=== PATIENT | male | born 1975 | race Caucasian/White ===

== ENCOUNTER 2020-12-07 10:08 | Inpatient (IN) | payer OTHER ==
[2020-12-07] VITALS (35 sets, daily range): BP systolic 115–194; BP diastolic 69–107
[~2020-12-07] VITALS: Ht 185.4 cm; Wt 201.5 kg
--- NOTE | ~2020-12-07 | EMS ---
[address] [address] EMS Patient Care Report Name: HENRI DIAL Room #: REG ZEKE Kapoor#: [id number] Admission: 12/07/20 Attend Phys: Discharge: Date of : [birth year] Report #: [id number] THIS REPORT FOR: //name// Report Transmitted: 12/07/2020 11:06 EMS Care Summary [place], [place]/[facility] Incident [phone] @ 12/07/2020 09:37 Incident Location [address] [place] [address] Patient HENRI DIAL Male, 46 Years 1974-07-13 Patient Address [address] [place] [id number] Patient History Hypertension (HTN),Hyperlipidemia,Depression,Schizoaffective Disorder,Type 2 Diabetes,Insomnia, Patient Allergies Codeine,Bee sting allergy, Patient Medications Amlodipine, Acetaminophen, Risperdal, Temazepam, Depakote, Citalopram, Gabapentin, Metformin, Lisinopril, Aspirin, Buspirone, Celexa, Cholecalciferol, Trazodone, Divalproex Sodium, Clonazepam, Lasix, Amitiza, Chief Complaint Altered mental status Disposition Transported [place] Dispatch Reason Sick Person Transported To [address] [address] EMS Patient Care Report Name: HENRI DIAL Room #: REG Emelia#: [id number] Admission: 12/07/20 Attend Phys: Discharge: Date of : [birth year] Report #: [id number] Arrived on scene with P45 to find our patient seated in a wheelchair. PA staff stated that they had noticed the patient was acting abnormally during shift change at 0600 earlier that morning. According to PA staff the patient's was normally a GCS15. PA staff reported that the patient had a room air SPO2 of 60%. When asked if the patient had any history of respiratory issues, conflicting reports were given stating that the patient had either no history of respiratory issues I was also told he had a recent history of "breathing problems." PA staff was unable to give an accurate estimate of when the patient's last known normal was. Upon patient contact he had an SPO2 of 98% on high flow O2, patient had audible rales without auscultation. Vital signs, glucose, and 3 lead EKG obtained. I removed the patient from O2 for a room air SPO2, at which point he rapidly dropped to the low 80% SPO2 range. Auscultation revealed course rales in the upper lobes of his lungs and absent lung sounds in his lower lobes. Due to the patient's facial features and his inability to follow commands I was unable to CPAP the patient. Patient placed back on high flow O2 and rapid transport was initiated. Patient transferred to receiving facility without further change in patient condition. Initial Vitals @09:55P: 108,SpO2: 84, @09:53P: 97,R: 20,GCS: 12,Glucose: 108,CO: 7,SpO2: 83, @09:58P: 111,R: 20,BP: 82/46,GCS: 12,SpO2: 91,Revised Trauma: 10, @10:00R: 20,BP: 132/82,GCS: 12,SpO2: 94,Revised Trauma: 11, Assessments @09:47MENTAL:Confused,Person Oriented,SKIN:Diaphoresis,Pale,HEENT:Head/Face: No Abnormalities,Eyes: No Abnormalities,Neck/Airway: No Abnormalities,LUNG SOUNDS:Left Upper: No Abnormalities,Right Upper: No Abnormalities,Left Lower: No Abnormalities,Right Lower: No Abnormalities,ABDOMEN:Left Upper: No Abnormalities,Right Upper: No Abnormalities,Left Lower: No Abnormalities,Right Lower: No Abnormalities,PELVIS//GI:No Abnormalities,EXTREMITIES:Left Arm: No Abnormalities,Right Arm: No Abnormalities,Left Leg: No Abnormalities,Right Leg: No Abnormalities,PULSE:Radial: 2+ Normal,NEURO:No Abnormalities,@09:56MENTAL:Confused,Person Oriented,SKIN:Diaphoresis,Pale,HEENT:LUNG SOUNDS:ABDOMEN:PELVIS//GI:EXTREMITIES:PULSE:NEURO: Impression Altered Mental Status Procedures @09:47ALS AssessmentResponse: UnchangedSucceeded@PTAOxygen FlowRate: 15 Device: Non Re-breather Mask (NRB) Response: ImprovedSucceeded@09:533-Lead ECGResponse: UnchangedSucceeded [address] [address] EMS Patient Care Report Name: HENRI DIAL Room #: REG ZEKE Kapoor#: [id number] Admission: 12/07/20 Attend Phys: Discharge: Date of : [birth year] Report #: [id number] Timeline CONTROL PANEL OPERATOR,Oxygen FlowRate: 15 Device: Non Re-breather Mask (NRB) Response: ImprovedSucceeded, 09:35,Call Received 09:35,Dispatch Notified 09:37,Dispatched 09:37,En Route 09:44,On Scene 09:47,At Patient 09:47,ALS Assessment,Response: UnchangedSucceeded, 09:53,3-Lead ECG,Response: UnchangedSucceeded, 09:53,BP: / M,PULSE: 97,RR: 20 R,SPO2: 83 Ox,ETCO2: ,B,PAIN: ,GCS: 12, 09:55,BP: / M,PULSE: 108,RR: R,SPO2: 84 Ox,ETCO2: ,BG: ,PAIN: ,GCS: , 09:55,Depart Scene 09:58,BP: 82/46 M,PULSE: 111,RR: 20 R,SPO2: 91 Ox,ETCO2: ,BG: ,PAIN: ,GCS: 12, 10:00,BP: 132/82 M,PULSE: ,RR: 20 R,SPO2: 94 Ox,ETCO2: ,BG: ,PAIN: ,GCS: 12, 10:01,At Destination 10:31,Call Closed Disclaimer v1.1 Copyright 2020 [employer] This EMS Care Summary contains data elements from the applicable legal record (which may be displayed differently). It is designed to provide pertinent information for the following purposes: continuity of care, clinical quality, and state data reporting. The complete legal record is available to ED staff and administrators of the receiving hospital in [employer]'s Patient Tracker. All data is provided "as is."
[~2020-12-07 10:08] MED LIST: AMITIZA8 MCG PO; ATIVAN0.5 MG; ATIVAN1 MG; CELEXA20 MG; CHILDREN'S ASPI81 M1 PO; CHLORPROMAZINE100 MG; CHLORPROMAZINE50 M2 PO; CLONAZEPAM 1 MG1 M1 PO; COLACE100 MG PO; CRESTOR40 MG PO; FEXOFENADINE HC60 MG PO; FLONASE 0.05%50 MCG NASAL; HALOPERIDOL5 MG/1 M1; HYDROCHLOROTHIA25 M1; IBUPROFEN 600600 M1 PO; KEFLEX500 MG PO; LASIX 40 MG TAB40 M2 PO; METFORMIN HCL500 MG PO; NEURONTIN 300300 M1; NEURONTIN 400M400 M2 PO; NORVASC5 MG PO; OMEGA-31000 M1; PROTONIX 20 MG20 MG; RISPERDAL50 MG/2 ML IM; SEROQUEL 50 MG50 MG; SEROQUEL300 MG; SINEMET 25-1001 EAC1; SINEMET CR 50/21 TAB; TIMOLOL GL0.5 %/5 M1; TRAMADOL 50 MG50 MG; ZESTRIL40 MG PO
--- NOTE | 2020-12-07 10:20 | NUR ---
PT TO BE INTUBATED AT THIS TIME. MEDS READY FOR DR KUO 20 ETOMIDATE AND 120 SUCCS.
[2020-12-07 10:54] LABS: HEMATOCRIT 37.6 % (42.0-52.0); HEMOGLOBIN 11.7 gm/dL (14.0-18.0); MCH 26.4 pg (26.0-34.0); MCHC 31.1 g/dL (28.0-37.0); MCV 84.8 fL (80.0-100.0); PLATELET COUNT 356 thou/uL (150-400); RBC 4.44 mil/uL (4.50-6.00); RDW 16.9 % (10.5-14.5); WBC 11.1 thou/uL (4.0-11.0)
[2020-12-07 10:59] LABS: ANION GAP 4 mmol/L (7-16); BUN 12 mg/dL (7-18); CHLORIDE 93 mmol/L (98-107); CO2 37 mmol/L (21-32); CREATININE 0.7 mg/dL (0.7-1.3); GLUCOSE 102 mg/dL (74-106); POTASSIUM 4.4 mmol/L (3.5-5.1); SODIUM 134 mmol/L (136-145)
[2020-12-07 11:05] LABS: ALBUMIN 2.8 g/dL (3.4-5.0); SGOT 12 U/L (15-37); SGPT 13 U/L (30-65); TOTAL BILIRUBIN 0.4 mg/dL (0.2-1.0); TOTAL PROTEIN 7.6 g/dL (6.4-8.2); TROPONIN-I <0.06 ng/mL (<0.06)
[2020-12-07 11:43] LABS: BE(vivo) 6.6 mmol/L (-2 to +3); HCO3 34.9 mmol/L (22.0-26.0); PCO2 69.4 mmHg (35.0-45.0); PO2 110.7 mmHg (80.0-100.0); pH 7.319 (7.360-7.450); sO2 97.5 % (92.0-98.0)
[2020-12-07 12:31] LABS: URINE BILIRUBIN NEGATIVE (Negative); URINE BLOOD NEGATIVE (Negative); URINE CLARITY CLEAR; URINE COLOR YELLOW; URINE GLUCOSE-RANDOM* NEGATIVE (Negative); URINE KETONES NEGATIVE (Negative); URINE LEUKOCYTES-REFLEX NEGATIVE (Negative); URINE NITRITE-REFLEX NEGATIVE (Negative); URINE PROTEIN (DIPSTICK) NEGATIVE (Negative); URINE UROBILINOGEN 0.2 E.U./dl (0.2-1.0)
[2020-12-07 12:54] LABS: AMP/METHAMP Negative (Negative); BARBITURATES Negative (Negative); BENZODIAZEPINES Negative (Negative); COCAINE Negative (Negative); METHADONE Negative (Negative); OPIATES Negative (Negative); PCP Negative (Negative)
--- NOTE | 2020-12-07 12:57 | EKG ---
[address] [address] ELECTROCARDIOGRAM REPORT Name: HENRI DIAL Room #: 170-7 ADM IN .R.#: [id number] Admission: 12/07/20 Attend Phys: Jeancarlos Santos MD Discharge: Date of : [birth year] Report #: [id number] [facility] ED Test Date: 2020-12-07 Test Time: 10:18:51 Pat Name: HENRI DIAL Department: Room: 170 7 Gender: M Starch Crab: [facility] : 1974-07-13 Requested By: Jeancarlos Santos Order Number: [id number] MD: Martir Ornelas Measurements Intervals Tofte Rate: 113 P: 58 [place]: 139 QRS: 58 QRSD: 79 T: 38 QT: 352 QTc: 483 Interpretive Statements Sinus tachycardia Borderline abnrm T, anterolateral leads Borderline prolonged QT interval Baseline wander in lead(s) I,III,aVR,aVL,aVF,V5 No previous ECG available for comparison Electronically Signed On 12-07-2020 12:57:17 CDT by Martir Ornelas [email or web address] <ELECTRONICALLY SIGNED> By: Martir Ornelas MD, [facility] 12/07/20 1257 [id number] [id number] Martir Ornelas MD, [facility] /EPI
[2020-12-07 14:26] LABS: ABSOLUTE NEUTROPHILS 6.4 thou/uL (1.4-8.2)
[2020-12-07 14:27] LABS: ANISOCYTOSIS 1+; NUCLEATED RBCS 1 /100WBC; POLYCHROMASIA 1+
[2020-12-07] MEDS ORDERED: BUSPIRONE HCL5 MG PO (14:49)
[2020-12-07] MEDS ORDERED: CELEXA 20 MG TA20 MG PO (14:50)
[2020-12-07] MEDS ORDERED: OPTIMAL D31250 MCG PO (14:52)
[2020-12-07] MEDS ORDERED: DEPAKOTE ER500 M1 PO (14:53)
[2020-12-07] MEDS ORDERED: DEPAKOTE500 MG PO (14:55)
[2020-12-07] MEDS ORDERED: NAPROSYN500 M1 PO (14:57)
[2020-12-07] MEDS ORDERED: PEPCID20 MG PO (14:58)
[2020-12-07] MEDS ORDERED: PROVERA10 MG PO (14:59)
[2020-12-07] MEDS ORDERED: RESTORIL15 M1 PO (15:00)
[2020-12-07] MEDS ORDERED: DESYREL150 MG PO (15:01)
[2020-12-07] MEDS ORDERED: EPIPEN 2-P0.3 MG/0.3 IM (15:02)
--- NOTE | 2020-12-07 15:21 | 2DMMODE ---
[facility] [email or web address] [address] 2 D/M-MODE ECHOCARDIOGRAM Name: HENRI DIAL Room #: 241-P ADM IN .R.#: [id number] Admission: 12/07/20 Attend Phys: Jeancarlos Santos MD Discharge: Date of : 77 Report #: [id number] THIS REPORT FOR: cc: Doug Calderon MD [facility] - Family physician [facility] Martir Ornelas MD [facility] ~ APPROVED REPORT Study performed: 12/07/2020 14:16:52 EXAM: Comprehensive 2D, Doppler, and color-flow Echocardiogram Patient Location: ICU Room #: 241 Status: routine BSA: 3.14 HR: 97 bpm BP: 124/71 mmHg Rhythm: NSR Other Information Study Quality: Technically Limited Technically limited study due to body habitus, patient on ventilator, inability to position patient. Indications Dyspnea Hypertension/HDD Echo Enhancing Agent Indication: Endocardial border delineation Agent(s) / Amount(s) Used: Optison 6 cc 2D Dimensions IVSd: 9.96 (7-11mm) LVOT Diam: 19.66 (18-24mm) LVDd: 54.58 mm PWd: 9.72 (7-11mm) Ascending Ao: 28.64 (22-36mm) LVDs: 37.74 (25-40mm) Left Atrium: 36.04 (27-40mm) Aortic Root: 32.97 mm Aortic Valve AoV Peak Reji.: 1.58 m/s AO Peak Gr.: 9.92 mmHg LVOT Max P.16 mmHg LVOT Max V: 1.02 m/s [facility] [address] [place] [address] 2 D/M-MODE ECHOCARDIOGRAM Name: HENRI DIAL Room #: 241-P [facility] IN [facility]#: [id number] Admission: 12/07/20 Attend Phys: Jeancarlos Santos MD Discharge: Date of : 77 Report #: [id number] [id number] Vmax: 1.97 cm2 Pulmonary Valve PV Peak Reji.: 1.16 m/s PV Peak Gr.: 5.41 mmHg Left Ventricle The left ventricle is normal size. There is normal LV segmental wall motion. There is normal left ventricular wall thickness. The left ventricular systolic function is normal. The left ventricular ejection fraction is within the normal range. LVEF is 55-60%. This study is not technically sufficient to allow evaluation of the LV diastolic function. Right Ventricle The right ventricle is normal size. The right ventricular systolic function is normal. Atria The left atrium size is normal. The right atrium size is normal. Aortic Valve The aortic valve is normal in structure. No aortic regurgitation is present. There is no aortic valvular stenosis. Mitral Valve The mitral valve is normal in structure. There is no mitral valve regurgitation noted. No evidence of mitral valve stenosis. Tricuspid Valve The tricuspid valve is normal in structure. There is no tricuspid valve regurgitation noted. Pulmonic Valve The pulmonary valve is normal in structure. There is no pulmonic valvular regurgitation. Great Vessels The aortic root is normal in size. IVC is not well visualized. Pericardium There is no pericardial effusion. <Conclusion> Normal left ventricular size/wall thickness [facility] [address] [place] [place] [address] 2 D/M-MODE ECHOCARDIOGRAM Name: HENRI DIAL Room #: [facility] IN [facility]#: [id number] Admission: 12/07/20 Attend Phys: Jeancarlos Santos MD Discharge: Date of : 77 Report #: [id number] Ejection fraction 60% Normal right ventricular size/function Normal atrial size Color-flow Doppler study was performed of the aortic/mitral/tricuspid/pulmonary valve Normal aortic/mitral valve structure and function No tricuspid valve insufficiency No pericardial effusion Normal aortic root size. Optison used for better endocardial visualization <ELECTRONICALLY SIGNED> By: Martir Ornelas MD, FACC 12/07/20 1520 1520 152 Martir Ornelas MD, FACC /INF
--- NOTE | 2020-12-07 16:17 | NUR ---
1420 RECEIVED PATIENT ADMISSION TO ICU FROM ED INTO ROOM 241. PATIENT IS INTUBATED AND SEDATED WITH VERSED AND FENTANYL. OGT TO LIS GREENISH DRAINAGE. MACDONALD IN PLACE. PLACED ON FUR MATCHER, O2 SAT AND BP MONITOR, 1430 BEDSIDE ECHO IN PROGRESS.
--- NOTE | 2020-12-07 17:23 | NUR ---
VAT CONSULTED FOR CVL PLACEMENT. RIGHT 6FR TL IJ JACC PLACED, TRIMMED 25CM WITH 4CM EXTERNAL. LOT [id number]. PT INTUBATED, BUT TOLERATED WELL. CXR ORDERED FOR PLACEMENT CONFIRMATION.
--- NOTE | 2020-12-07 18:22 | NUR ---
RADIOLOGY REPORT THAT TIP AT [facility]. RELEASED LINE FOR USE, PER VASCULAR ACCESS POLICY.
--- NOTE | 2020-12-07 19:00 | NUR ---
PATIENT REMAINS SEDATED WITH FENTANYL AND VERSED TITRATED. VENT SETTINGS UNCHANGED. MONITOR SHOWS NSR WITH PVC'S. BP INCREASED WHEN AGITATED. RT IJ INSERT BY IV TEAM AND PCXR DONE FOR PLACEMENT. NOW AVAILBLE FOR USE. PATIENT IS SLOWLY PROGRESSING.
[2020-12-08] VITALS (35 sets, daily range): BP systolic 128–156; BP diastolic 69–92
[2020-12-08 04:56] LABS: HEMATOCRIT 35.5 % (42.0-52.0); HEMOGLOBIN 11.5 gm/dL (14.0-18.0); MCH 27.2 pg (26.0-34.0); MCHC 32.3 g/dL (28.0-37.0); MCV 84.2 fL (80.0-100.0); RBC 4.22 mil/uL (4.50-6.00); RDW 16.8 % (10.5-14.5); WBC 9.6 thou/uL (4.0-11.0)
[2020-12-08 05:08] LABS: BE(vivo) 1.3 mmol/L (-2 to +3); HCO3 28.7 mmol/L (22.0-26.0); PCO2 57.6 mmHg (35.0-45.0); PO2 78.5 mmHg (80.0-100.0); pH 7.315 (7.360-7.450); sO2 94.4 % (92.0-98.0)
[2020-12-08 05:38] LABS: CALCIUM 7.9 mg/dL (8.5-10.1); CREATININE 0.9 mg/dL (0.7-1.3)
[2020-12-08 06:05] LABS: POTASSIUM 3.4 mmol/L (3.5-5.1)
--- NOTE | 2020-12-08 07:27 | NUR ---
ORDERS RECEIVED FOR EVAL AND TREAT. Pt IS VENTED AND SEDATED. WILL PLACE ON HOLD AND AWAIT NEW ORDERS WHEN APPROPRIATE FOR THERAPY
--- NOTE | 2020-12-08 11:14 | NUR ---
ASSUMED CARE OF PT AT 0700 DR. PHILLIPS AT BEDSIDE AT 1110 AND WOULD LIKE FOR MED REC TO BE COMPLETED SO HE CAN RESUME HIS PSYCH MEDS. DR. ARROYO AT BEDSIDE AT 1112, ORDERS TO START NUTRITION AND TO UP LIMITS ON SEDATION WERE GIVEN. I SPOKE TO PHARMACY ABOUT THE MED REC AND NEED TO RESTART AND SHE IS GOING TO WORK ON IT.
--- NOTE | 2020-12-08 14:04 | NUR ---
Chart review. Discussed during los and am rounds. Intubated, new order for ID consult. Lives at [facility]. Has DME at facility if needed. ISHMAEL Linn [phone]. updates to be provided to camila and ISHMAEL.
[2020-12-08 16:57] LABS: BE(vivo) 3.4 mmol/L (-2 to +3); HCO3 27.6 mmol/L (22.0-26.0); PCO2 40.2 mmHg (35.0-45.0); PO2 222.8 mmHg (80.0-100.0); pH 7.454 (7.360-7.450); sO2 99.5 % (92.0-98.0)
--- NOTE | 2020-12-08 17:38 | NUR ---
FAXED CLINICAL UPDATES TO DANIEL. WILL CONFIRM WITH ADREIL/DON THAT THEY RECEIVED. [facility]EL P [phone]; PHONE [phone]
[2020-12-09] VITALS (24 sets, daily range): BP systolic 127–152; BP diastolic 65–90
[2020-12-09 03:23] LABS: HEMATOCRIT 35.8 % (42.0-52.0); HEMOGLOBIN 11.3 gm/dL (14.0-18.0); MCH 26.7 pg (26.0-34.0); MCHC 31.6 g/dL (28.0-37.0); MCV 84.4 fL (80.0-100.0); RBC 4.25 mil/uL (4.50-6.00); RDW 16.9 % (10.5-14.5); WBC 10.2 thou/uL (4.0-11.0)
[2020-12-09 03:46] LABS: CALCIUM 7.8 mg/dL (8.5-10.1); CREATININE 0.7 mg/dL (0.7-1.3); POTASSIUM 3.9 mmol/L (3.5-5.1)
[2020-12-09 04:57] LABS: BE(vivo) -2.6 mmol/L (-2 to +3); HCO3 24.5 mmol/L (22.0-26.0); PCO2 52.1 mmHg (35.0-45.0); PO2 78.8 mmHg (80.0-100.0); sO2 94.2 % (92.0-98.0)
--- NOTE | 2020-12-09 14:08 | NUR ---
PATIENT SELF EXTUBATED AT 1347. NURSE AT BEDSIDE. EMPLOYMENT CASE MANAGER WAS ON UNIT AND INFORMED AND NEW ORDERS RECEIVED. RT WAS CALLED AND PLACED THE PATIENT ON BIPAP PER EMPLOYMENT CASE MANAGER. SEDATION AND TUBE FEEDING TURNED OFF.
[2020-12-09 14:36] LABS: BE(vivo) 3.8 mmol/L (-2 to +3); PCO2 52.5 mmHg (35.0-45.0); PO2 75.6 mmHg (80.0-100.0); pH 7.375 (7.360-7.450); sO2 94.7 % (92.0-98.0)
[2020-12-10] VITALS (23 sets, daily range): BP systolic 121–166; BP diastolic 65–97
[2020-12-10 05:17] LABS: HEMATOCRIT 36.5 % (42.0-52.0); HEMOGLOBIN 11.6 gm/dL (14.0-18.0); MCH 27.1 pg (26.0-34.0); MCHC 31.7 g/dL (28.0-37.0); MCV 85.4 fL (80.0-100.0); RBC 4.28 mil/uL (4.50-6.00); WBC 9.8 thou/uL (4.0-11.0)
--- NOTE | 2020-12-10 05:33 | NUR ---
0520-PT COUGHING ON BIPAP, ASKING FOR WATER; EXPLAINED MULTIPLE TIMES THROUGHOUT THE NIGHT IT WAS NOT SAFE TO DRINK AFTER HAVING SELF-EXTUABTED AND WITHOUT A SPEECH EVAL. PT INCREASINGLY BELLIGERENT, RIPPED BIPAP MASK AND PULSE OX OFF, THROWING PILLOWS, AND NEARLY PULLING HIMSELF UP AND OUT OF BED. THROWING SWABS AND SUCTION ONTO FLOOR. ALL WHILE VIOLENTLY COUGHING. SECURITY NOTIFIED. GAVE PRN PUSH MORPHINE AND VERSED FOR LIMITED EFFECT; FOUR NURSES IN ROOM TRYING TO REDIRECT PT. WHEN TOLD THAT HE NEEDED BIPAP TO KEEP BREATHING, TO LIVE, AND TO GET BETTER OR HE WOULD END UP INTUBATED AGAIN, PT KEPT YELLING "JUST LET ME THEN." SPOKE W/PRINT BINDING AND FINISHING WORKER BEBO, GAVE ONE TIME DOSE IM HALDOL. AROUND 0535-ABLE TO GET PT ON BIPAP FOR MORE THAN A FEW SECONDS. STILL ASKING FOR WATER, STATING "MY DOCTOR SAYS I CAN HAVE COLD WATER WHEN I'M COUGHING." ALSO ASKED ABOUT HIS HOME MEDS. MULTIPLE NURSES EXPLAINED AT LENGTH WHY THIS WASN'T SAFE-DRINKING OR TAKING PILLS. EXPLAINED HE WAS RECEIVING IV MEDS TO HELP , BUT CONTINUED TO BE BELLIGERENT. STATED "I DON'T WANT ANY MORE MEDS YOU ARE GIVING ME, I DON'T WANT THIS MASK EITHER." SECOND RN HELPED EXPLAIN AT LENGHTH HOW SERIOUS HIS SITUATION WAS; TURNED TV ON FOR PT, CURRENTLY LEAVING BIPAP ALONE. WILL CONTINUE TO MONITOR.
[2020-12-10 05:35] LABS: CALCIUM 8.1 mg/dL (8.5-10.1); CREATININE 0.7 mg/dL (0.7-1.3)
--- NOTE | 2020-12-10 11:29 | NUR ---
PT IS PROGRESSING TOWARDS DISCHARGE AT THIS TIME, WAS TOLD DURING REPORT THAT PT WAS DIFFICULT AT TIMES, RN WAS ABLE TO BUILD [place] USING THERAPEUTIC COMMUNICATION AND CONVEYING GRATITUDE & LOVE FOR THE PATIENT. PT IS ABLE TO BE CONSOLED, AND COORDINATED WITH RN THAT GOAL FOR TODAY IS TO RECEIVE SHOWER AND SPEECH THERAPY. RN PROVIDED BED BATH. PT WAS ABLE TO GET UP TO THE [facility] USING TWO PEOPLE ESCORT AND WAS VERY SLOW TO PROGRESS FROM BED TO COMMODE. PT WAS SEEN BY , THE PLAN AT THIS TIME IS TO HAVE THE PT TRIAL BED SIDE SWALLOW EVAL WHILE USING NASAL CANULA TO SEE HOW PT PERFORMS.
[2020-12-11] VITALS (20 sets, daily range): BP systolic 117–151; BP diastolic 76–94
[2020-12-11 05:27] LABS: HEMATOCRIT 36.1 % (42.0-52.0); HEMOGLOBIN 11.2 gm/dL (14.0-18.0); MCH 26.4 pg (26.0-34.0); MCHC 31.1 g/dL (28.0-37.0); RBC 4.24 mil/uL (4.50-6.00); RDW 16.7 % (10.5-14.5); WBC 11.1 thou/uL (4.0-11.0)
[2020-12-11 05:36] LABS: CALCIUM 8.2 mg/dL (8.5-10.1); CREATININE 0.8 mg/dL (0.7-1.3)
--- NOTE | 2020-12-11 10:35 | NUR ---
PT IS PROGRESSING TOWARDS DISCHARGE, WAS SEEN BY SLT TODAY, PT APPEARS MUCH BETTER TODAY THAN YESTERDAY, IS CURRENTLY ON HIGH FLOW NASAL CANULA AT 7LPM, WOULD LIKE THAT NUMBER TO BE LESS THAN 7LPM PRIOR TO TRANSFER TO A CRITICAL CARE TELE UNIT. PER PT'S GOAL STATED, THAT HIS GOAL IS TO DC SOON POSSIBLE
--- NOTE | 2020-12-11 15:10 | NUR ---
Chart review. Discussed during am rounds and Los. requires use of bipap and then changed to HF o2 15-10L. Speech eval ordered for today. updated provided to [facility] lt. Will cont following as needed for dc needs.
[2020-12-12 00:10] VITALS: BP 127/78
[2020-12-12 04:10] VITALS: BP 132/66
[2020-12-12 05:42] LABS: HEMATOCRIT 37.3 % (42.0-52.0); HEMOGLOBIN 11.8 gm/dL (14.0-18.0); MCH 26.7 pg (26.0-34.0); MCHC 31.6 g/dL (28.0-37.0); MCV 84.7 fL (80.0-100.0); RBC 4.41 mil/uL (4.50-6.00); RDW 16.5 % (10.5-14.5); WBC 12.3 thou/uL (4.0-11.0)
[2020-12-12 05:47] LABS: CALCIUM 8.2 mg/dL (8.5-10.1); CREATININE 0.7 mg/dL (0.7-1.3); POTASSIUM 3.9 mmol/L (3.5-5.1)
[2020-12-12 07:47] VITALS: BP 121/82
--- NOTE | 2020-12-12 09:21 | NUR ---
0900 PT OFF UNIT FOR VIDEO SWALLOW
--- NOTE | 2020-12-12 10:47 | NUR ---
ASSUMED PT CARE AT SHIFT CHANGE, PT NEEDS FREQUENT REMINDER TO SIT UPRIGHT AND DEEP BREATHE. PT CAN DESAT TO HIGH 80'S EASILY, BREATHES THROUGH MOUTH. PT TAKES EXTENDED TIME TO RECOVER TO LOW 90'S WITH SITTING UPRIGHT AND ADJUSTMENT OF OXYGEN LEVEL. PT BREATH SOUNDS DIMINISHED. UNLABORED BREATHING.
[2020-12-12 11:22] VITALS: BP 146/88
--- NOTE | 2020-12-12 13:26 | NUR ---
SW reviewed chart and spoke with nursing and attending physician. Pt was transferred to from ICU. Pt is on 5-7L of O2. Pt is on IV steroids, IV lasix and IV abx. PT/OT ordered today to eval pt for discharge needs. Pt is from LTC at [facility]. JAVIER left voice message for pt's legal guardian, Yane Ruiz [facility] Public Revenue Settlements Administrator. Requested call back and to have guardianship ppwk faxed to JAVIER to place on pt's chart. Plan is for pt to d/c back to [facility] when medically stable. JAVIER is following to assist as needed with discharge planning.
--- NOTE | 2020-12-12 14:59 | NUR ---
left message for pt joselito at [phone] and [phone]
[2020-12-12 15:38] VITALS: BP 129/80
[2020-12-12 19:28] VITALS: BP 128/81
[2020-12-13 04:42] VITALS: BP 146/85
[2020-12-13 05:45] LABS: HEMATOCRIT 39.9 % (42.0-52.0); HEMOGLOBIN 12.2 gm/dL (14.0-18.0); MCH 25.8 pg (26.0-34.0); MCHC 30.5 g/dL (28.0-37.0); MCV 84.6 fL (80.0-100.0); RBC 4.71 mil/uL (4.50-6.00); RDW 16.4 % (10.5-14.5); WBC 13.1 thou/uL (4.0-11.0)
[2020-12-13 06:07] LABS: CALCIUM 8.9 mg/dL (8.5-10.1); CREATININE 0.6 mg/dL (0.7-1.3); POTASSIUM 4.6 mmol/L (3.5-5.1)
[2020-12-13 07:46] VITALS: BP 111/82
[2020-12-13 11:34] VITALS: BP 123/77
--- NOTE | 2020-12-13 15:05 | NUR ---
PT INFORMED THIS RN PHYSICIAN STATED HE WOULD BE ABLE TO DC TOMORROW. PT GUARDIAN BROUGHT UP CLEAN CLOTHES FOR PT TO WEAR UPON DC. CLOTHES PLACED IN CLOSET IN PT ROOM.
[2020-12-13 15:20] VITALS: BP 113/72
[2020-12-13 19:58] VITALS: BP 111/79
--- NOTE | 2020-12-14 09:28 | NUR ---
RT WENT TO WALK PATIENT PATIENT FOUND ON BIPAP AND 4L ON STANDBY. RT INFORMED PATIENT ABOUT WALK PATIENT AGREE TO WALK. PATIENT OXYGEN TURN OFF RT WAITED 5-6MIN AND PATIENT OXYGEN SAT DROOPED TO 86% PATIENT WAS THAN PLACED ON 2L. RT BEGUN TO GET PATIENT OUT BED PATIENT APPEARED WEAK AND CONFUSED HIS OXYGEN SAT DROPPED TO 84% ON 2L RT INCREASED OXYGEN TO 4L PATIENT HAD A SAT OF 89% WHILE TRYING TO GET OUT OF BED PATIENT OXYGEN CONTINUE TO DROP TO 85% OXYGEN INCREASED TO 5L WITH A SAT OF 92% ON 5L. RT WAS UNABLE TO GET PATIENT OUT THE BED. RT DID SPEAK WITH FABY ROTHMAN TO NOTIFIED RT WHEN PT COMES UP SO RT CAN GET A SAT WITH MOVEMENT AND OXYGEN.
[2020-12-14 11:15] VITALS: BP 111/63
[2020-12-14 15:15] VITALS: BP 101/68
--- NOTE | 2020-12-14 16:07 | NUR ---
JAVIER reviewed chart and spoke with nursing and attending physician. Pt is on 5L of O2. Pt is on IV Lasix. JAVIER faxed clinical/therapy updates to [facility] and spoke with RAMONE Rodriguez at [facility]. Provided update. Per Michael, they would like for pt to be off O2 prior to returning to the facility. However, they might consider having pt returning with O2 depending on the liter flow. JAVIER received pt's guardianship ppwk and placed on pt's chart. JAVIER met with pt at bedside, who states he is ready to d/c back to [facility]. SW explained to pt that he will need to require less or no oxygen. Pt verbalized understanding. JAVIER spoke with pt's legal guardian, Yane, about possible considering inpt acute rehab for continued therapy and medical mgmt. Yane is agreeable [facility] consult for 5N. JAVIER discussed with attending physician and 5N rehab director occupational therapist. Consult ordered today. JAVIER is following to assist as needed with discharge planning.
--- NOTE | 2020-12-14 16:42 | NUR ---
RN ASSUMED PT'S CARE AT 0700AM, PT IS A&OX3 ( PERSON, PLACE AND TIME), PT CAN FOLLOW COMMANDS, PT 'S O2 IS ON 4L/MIN/NC TO KEEP O2SAT AT 92%-93%, PT STILL HAS SOB WITH ACTIVITIES, PT GE'S VS ARE STABLE, PT GETS UP TO CHAIR WITH ASSIST.
[2020-12-14 19:42] VITALS: BP 125/60
[2020-12-15 00:13] VITALS: BP 109/79
--- NOTE | 2020-12-15 03:31 | NUR ---
Patient making some progress towards outcome goals. Vital signs and rhythm stable. High fall risks, fall precautions in place. Oxygenation optimal on 4L when awake, BIPAP at night- tolerating well.
[2020-12-15 04:06] VITALS: BP 106/71
[2020-12-15 06:16] LABS: HEMATOCRIT 41.4 % (42.0-52.0); HEMOGLOBIN 12.9 gm/dL (14.0-18.0); MCH 26.4 pg (26.0-34.0); RBC 4.87 mil/uL (4.50-6.00); RDW 16.7 % (10.5-14.5); WBC 14.1 thou/uL (4.0-11.0)
[2020-12-15 06:35] LABS: CALCIUM 8.7 mg/dL (8.5-10.1); CREATININE 0.7 mg/dL (0.7-1.3); MAGNESIUM 2.4 mg/dL (1.8-2.4); POTASSIUM 3.7 mmol/L (3.5-5.1)
[2020-12-15 07:21] VITALS: BP 109/71
[2020-12-15 11:41] VITALS: BP 114/67
--- NOTE | 2020-12-15 16:14 | NUR ---
JAVIER reviewed chart and spoke with nursing and attending physician. Pt remains on 4L of O2. Pt is on IV lasix. Pt has been requiring bipap. JAVIER spoke with Michael at [facility], who states they are not able to accept pt back over the weekend. Pt is able to return to [facility] on a cpap machine. They are not able to provide bipap. SW updated pt at bedside. Pt has had periods of agitation. Security has been called. SW left voice message for pt's legal guardian and to provide update. Pt is too high level for 5N. SW requested legal guardian to call nurses station to speak with pt. Pt is not able to leave AMA. Pt [place]. Guardianship ppwk on pt's chart. JAVIER is following and available to assist should needs arise.
--- NOTE | 2020-12-15 18:32 | NUR ---
RN ASSUMED PT'S CARE AT 0700AM, PT KNOWS HIS NAME , PT CAN FOLLOW SOME COMMANDS, BUT PT IS CONFUSED , AND AGITATION AT TIME,PSYCHIATRY DR HAS CONSULT, NEW MEDICATIONS HAVE RECEIVED, PT IS CONTINUING O2 4L/MIN/NC, PT HAS SOB WITH ACTIVITIES, PT STILL NEEDS BIPAP AT NIGHT TIME. RN WILL REPORT TO NEXT SHIFT TO KEEP EYE ON PT,
[2020-12-15 21:07] VITALS: BP 151/84
[2020-12-15 23:30] VITALS: BP 113/75
--- NOTE | 2020-12-15 23:57 | NUR ---
PT DIFFICULTY TO AWAKEN AT START OF SHIFT. STERNAL RUB DONE . HE AWAKENED AFTER STERNAL RUB AND WAS ABLE TO TALK WITH NURSE. HE THAN BEGAN TO EAT HIS SANDWICH. EVENTUALLY WAS ABLE TO NOTIFY MASONRY SUPERVISOR AFTER SHE WAS OUT OF A CODE BLUE. CLARIFIED WHETHER TO GIVE HS MEDS THAT WOULD NAKE HIM MORE SEDATED. GAVE SAME MEDS THAT WERE GIVEN LAST NIGHT. HELD CHLORPROMAZINE ORDERED. PT ON OVERNIGHT DESAT STUDY ON RA. PT DESATTED TO 85%. RT IN RM WITH PT, SHE PLACED PT BACK ON 2LNC. VSS. AFEBRILE. BED DOWN. CALL LIGHT IN REACH. BED ALARM IS ON. ABGS WILL BE DONE IN AM . CONTINUOUS PULSE OX IS ON.
[2020-12-16 03:12] VITALS: BP 140/87
[2020-12-16 05:00] LABS: HCO3 34.5 mmol/L (22.0-26.0); PCO2 62.4 mmHg (35.0-45.0); PO2 70.5 mmHg (80.0-100.0); pH 7.361 (7.360-7.450); sO2 93.1 % (92.0-98.0)
--- NOTE | 2020-12-16 05:25 | NUR ---
PT PROGRESSING SLOWLY TOWARDS D/C GOALS. VSS AFEBRILE. SATS WNL ON 2LNC.NO C/O PAIN. PT ON DESAT STUDY. NOT ON BIPAP DUE TO ATTEMPTING TO QUALIFY PT FOR CPAP FOR D/C TO [facility] HOME. PT HAS BEEN RESTING QUIETLY THIS MORNING.
[2020-12-16 07:23] VITALS: BP 123/87
--- NOTE | 2020-12-16 12:44 | NUR ---
ASSUMED PT CARE AT SHIFT CHANGE, PT A&OX4, CALM MOOD. PT STATES NO CONCERNS, IS ABLE TO AMBULATE WITH STANDBY ASSIST. PT FREQUENTS BETWEEN BED AND CHAIR. MACDONALD IN PLACE, FLUID RESTRICTION OF 2500ML.
[2020-12-16 15:58] VITALS: BP 97/66
[2020-12-16 19:50] VITALS: BP 84/49
[2020-12-16 20:30] VITALS: BP 98/52
--- NOTE | 2020-12-16 21:43 | NUR ---
PT PROGRESSING SLOWLY TOWARDS D/C GOALS. VSS. AFEBRILE. HE IS CURRENTLY ON BIPAP . SATTING 97%. HE TOOK HIS HS MEDS. ENCOURAGED TO STICK WITH FLUID RESTRICTION. NO C/O PAIN OR SOA PRESENTLY. WILL MONITOR PT CLOSELY FOR CHANGES. BED DOWN. CALL LIGHT IN REACH. BED ALARM IS ON.
[2020-12-17 03:19] VITALS: BP 97/58
--- NOTE | 2020-12-17 05:26 | NUR ---
PT PROGRESSING SLOWLY TOWARDS D/C GOALS . VSS AFEBRILE SATS WNL ON BIPAP .97-99 %. LUNGS SOUND DIMINSHED AT BASES. ENCOURAGING 2400 FR. MACDONALD HAS CLEAR YELLOW URINE IN GOOD AMTS. PT RESTING QUIETLY PRESENTLY.
[2020-12-17 06:51] VITALS: BP 119/79
[2020-12-17 07:33] VITALS: BP 112/78
--- NOTE | 2020-12-17 11:08 | NUR ---
ASSUMED PT CARE AT SHIFT CHANGE, PT IS MORE SLEEPY THIS MORNING THAN YESTERDAY. RESPONDS EASILY TO VOICE COMMANDS. PT WAS UP AND ATE BREAKFAST VERY QUICKLY. THIS RN REMINDED PT TO TAKE HIS TIME WITH EATING. RT READJUSTED PT NC TO 2.0L. PULSE OX WNL.
[2020-12-17 15:12] VITALS: BP 110/77
[2020-12-17 19:35] VITALS: BP 107/74
--- NOTE | 2020-12-17 23:10 | NUR ---
PT CONFUSED AT TIMES. FOLLOWS COMMANDS. VSS. SATS WNL WITH BIPAP ON AT HS. UNLABORED WITH BIPAP ON. DENIED PAIN. BED DOWN. CALL LIGHT IN REACH. BED ALARM IS ON. PRESENTLY HE IS CALM AND SLEEPING. ENCOURAGED PT TO BE COMPKLIANT WITH FLUID RESTRICTION.
[2020-12-18 04:50] VITALS: BP 116/75
--- NOTE | 2020-12-18 06:48 | NUR ---
PT PROGRESSING SLOWLY TOWARDS D/C GOALS. VSS. VOIDS IN BR LG AMTS CLEAR YELLOW URINE. PT INSISTED BIPAP COME OFF. DESATS LESS THAN 90 WHILE LAYING ON SIDE. REFUSED TO SIT UPIN BED.
[2020-12-18 07:12] VITALS: BP 110/63
[2020-12-18 15:41] VITALS: BP 117/66
--- NOTE | 2020-12-18 15:43 | NUR ---
JAVIER reviewed chart and spoke with nursing and attending physician. Pt is progressing towards goals for discharge. Pt is on 2L of O2 and requiring bipap at night. JAVIER spoke with RAMONE Rodriguez at [facility], who states that pt cannot return to the facility on O2 or with a bipap. The facility is able to provide a cpap machine. Pt became agitated this afternoon and wanting to leave the hospital. 4 members of the public safety team at bedside to assist with pt. JAVIER contacted pt's legal guardian, Yane Ruiz, to provide update. Yane requested to speak with pt. SW place Yane on speakerphone and allowed Yane to speak with pt. Pt became agitated and started punching the door and beach. Psych called and came to assist with pt. Pt cooperative with taking meds. Attending physician, psych and JAVIER spoke with Dr. Malave, physician at [facility], to discuss pt returning with O2. Dr. Malave discussed with Michael. Pt is able to return to [facility] on continuous O2. They will accept pt back tomorrow. JAVIER faxed updated clinical info to [facility] for review. JAVIER left voice message for pt's legal guardian to provide update and notify of discharge plan. JAVIER is following to assist as needed with discharge planning.
--- NOTE | 2020-12-18 19:19 | NUR ---
PT ALERT AND ORIENTED TIMES THREE WITH PERIODS OF CONFUSION. VSS. SR ON TELE. PT C/O HEADACHE PRN PAIN MEDICATIONS GIVEN WITH SOME RELEIF. PT WORKED WELL WITH PT TODAY WALKING AROUND THE UNIT. PT TOLEARTES MEDS AND MEALS. PT PROGRESING TOWRADS POC GOALS.
[2020-12-18 19:22] VITALS: BP 100/60
[2020-12-19 03:04] VITALS: BP 158/98
--- NOTE | 2020-12-19 04:00 | NUR ---
Patient making progress towards outcome goals. Oxygenation optimal on continues oxygen at 1 L/NC sats 95-96%.High fall risks per screening due to history of falls but gait is steady ambulating to bathroom and chair. Patient anticipating discharge today. No loud outburst tonight, states he was severely disappointed yesterday after he was told by several doctors he can go home and facility would not accept him back with oxygen. Refused to wear ekg monitor. Vital signs stable.
[2020-12-19 07:13] VITALS: BP 128/78
--- NOTE | 2020-12-19 13:30 | NUR ---
DISCHARGE NOTE: JAVIER reviewed chart and spoke with nursing and attending physician. Pt is medically stable for discharge back to [facility] today. Rest/exercise oximetry completed. Pt does not need O2. JAVIER spoke with RAMONE Rodriguez at [facility], who confirms they are able to accept pt back today. [facility] would like pt back at the facility as early as possible. [facility] does not have transportation available. JAVIER spoke with pt's legal guardian/public warranty administrator, Yane, to provide update and discuss discharge plan. Yane is aware and in agreement with discharge plan. Yane requests discharge ppwk to be faxed to her office at [phone]. JAVIER arranged transportation back to [facility] through [facility]. Earliest bariatric stretcher van transportation available is [phone]. [facility] [employer] must use a stretcher for pts over 400 pounds. JAVIER updated attending physician. Awaiting final discharge ppwk at this time. JAVIER is following to finalize discharge.
[2020-12-19] MEDS ORDERED: CHLORPROMAZINE50 M2 PO (14:27)
[2020-12-19] MEDS ORDERED: PREDNISONE 10 M10 MG PO (14:30)
[2020-12-19 15:14] VITALS: BP 114/71
--- NOTE | 2020-12-19 15:19 | NUR ---
REPORT CALLED TO GUILLAUME HOBBS AT [facility]. DISCONTINUE CENTRAL LINE AND PT SCHEDULED TO RETURN TO FACILITY AT 1600 TODAY. ALL BELONGING WILL BE TAKEN WITH PT.
--- NOTE | 2020-12-19 17:51 | NUR ---
PT DISCHARGED BACK TO FACILITY AT 1600 TODAY.
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
== END 2020-12-19 16:05 | DRG 871 ==
LOC: ER 10:08 → ICU 12:23 → EROBS 12:23 → EDBD 12:23 → ICU 13:54 → 3W 12-11 19:34
PROVIDERS: Emergency Medicine; Internal Medicine; Internal Medicine Pulmonary Disease; Pediatrics; ADMIT Hospitalist; ATTEND Hospitalist
PROC: 0BH18EZ Insertion of Endotracheal Airway into Trachea, Via Natural or Artificial Opening Endoscopic (ICD-10-PCS; 2020-12-07)
PROC: 5A1945Z Respiratory Ventilation, 24-96 Consecutive Hours (ICD-10-PCS; 2020-12-07)
PROC: 02HV33Z Insertion of Infusion Device into Superior Vena Cava, Percutaneous Approach (ICD-10-PCS; 2020-12-07)
PROC: 5A09357 Assistance with Respiratory Ventilation, Less than 24 Consecutive Hours, Continuous Positive Airway Pressure (ICD-10-PCS; principal; 2020-12-09)
PROC: 5A0935A Assistance with Respiratory Ventilation, Less than 24 Consecutive Hours, High Flow/Velocity Cannula (ICD-10-PCS; 2020-12-10)
PROC: 5A09357 Assistance with Respiratory Ventilation, Less than 24 Consecutive Hours, Continuous Positive Airway Pressure (ICD-10-PCS; 2020-12-10)
PROC: 5A09357 Assistance with Respiratory Ventilation, Less than 24 Consecutive Hours, Continuous Positive Airway Pressure (ICD-10-PCS; 2020-12-11)
PROC: 5A0935A Assistance with Respiratory Ventilation, Less than 24 Consecutive Hours, High Flow/Velocity Cannula (ICD-10-PCS; 2020-12-11)
PROC: 5A0935A Assistance with Respiratory Ventilation, Less than 24 Consecutive Hours, High Flow/Velocity Cannula (ICD-10-PCS; 2020-12-12)
PROC: 5A09357 Assistance with Respiratory Ventilation, Less than 24 Consecutive Hours, Continuous Positive Airway Pressure (ICD-10-PCS; 2020-12-12)
PROC: 5A0935A Assistance with Respiratory Ventilation, Less than 24 Consecutive Hours, High Flow/Velocity Cannula (ICD-10-PCS; 2020-12-13)
PROC: 5A09357 Assistance with Respiratory Ventilation, Less than 24 Consecutive Hours, Continuous Positive Airway Pressure (ICD-10-PCS; 2020-12-13)
PROC: 5A09357 Assistance with Respiratory Ventilation, Less than 24 Consecutive Hours, Continuous Positive Airway Pressure (ICD-10-PCS; 2020-12-14)
PROC: 5A0935A Assistance with Respiratory Ventilation, Less than 24 Consecutive Hours, High Flow/Velocity Cannula (ICD-10-PCS; 2020-12-14)
PROC: 5A09357 Assistance with Respiratory Ventilation, Less than 24 Consecutive Hours, Continuous Positive Airway Pressure (ICD-10-PCS; 2020-12-15)
PROC: 5A0935A Assistance with Respiratory Ventilation, Less than 24 Consecutive Hours, High Flow/Velocity Cannula (ICD-10-PCS; 2020-12-15)
PROC: 5A0935A Assistance with Respiratory Ventilation, Less than 24 Consecutive Hours, High Flow/Velocity Cannula (ICD-10-PCS; 2020-12-16)
PROC: 5A09357 Assistance with Respiratory Ventilation, Less than 24 Consecutive Hours, Continuous Positive Airway Pressure (ICD-10-PCS; 2020-12-16)
PROC: 5A09357 Assistance with Respiratory Ventilation, Less than 24 Consecutive Hours, Continuous Positive Airway Pressure (ICD-10-PCS; 2020-12-17)
DX: A41.9 Sepsis, unspecified organism (principal); J96.21 Acute and chronic respiratory failure with hypoxia; J96.22 Acute and chronic respiratory failure with hypercapnia; J15.0 Pneumonia due to Klebsiella pneumoniae; J44.1 Chronic obstructive pulmonary disease with (acute) exacerbation; J44.0 Chronic obstructive pulmonary disease with (acute) lower respiratory infection; Z68.44 Body mass index [BMI] 60.0-69.9, adult; R65.20 Severe sepsis without septic shock; G20 Parkinson's disease; F02.80 Dementia in other diseases classified elsewhere, unspecified severity, without behavioral disturbance, psychotic disturbance, mood disturbance, and anxiety; I10 Essential (primary) hypertension; E66.01 Morbid (severe) obesity due to excess calories; F20.9 Schizophrenia, unspecified; E78.5 Hyperlipidemia, unspecified; F17.200 Nicotine dependence, unspecified, uncomplicated; N40.0 Benign prostatic hyperplasia without lower urinary tract symptoms; Z20.822 Contact with and (suspected) exposure to COVID-19; Z79.82 Long term (current) use of aspirin; Z79.899 Other long term (current) drug therapy; Z79.84 Long term (current) use of oral hypoglycemic drugs; Z88.5 Allergy status to narcotic agent; Z91.030 Bee allergy status; Z91.018 Allergy to other foods
CPT/HCPCS: 10078; 10879